=== PATIENT | male | born 1995 ===

== ENCOUNTER 2021-05-13 19:12 | Emergency (ER) | payer OTHER ==
[2021-05-13] MEDS ORDERED: LODINE CAP 300300 MG PO (20:58)
[2021-05-13] MEDS ORDERED: LEVOFLOXACIN500 MG PO (20:58)
[2021-05-13] MEDS ORDERED: BACTRIM DS TAB1 EACH PO (21:05)
== END 2021-05-13 21:15 | disposition home or self-care (01) ==
LOC: ER1 19:12
DX: S91.331A Puncture wound without foreign body, right foot, initial encounter (principal); F17.210 Nicotine dependence, cigarettes, uncomplicated; W45.0XXA Nail entering through skin, initial encounter; Z23 Encounter for immunization
CPT/HCPCS: 73630; 90471; 90715; 99283